=== PATIENT | female | born 1955 | race Caucasian/White ===

== ENCOUNTER → 2016-09-17 | Outpatient (CLI) | payer MEDICARE, OTHER ==
[~2016-09-17] MED LIST: ADVAIR 250-501 EACH INH; CORTISONE ACETAT PO; CORTISONE ACETATE PO; CRESTOR20 MG PO; K-TAB 10MEQ10 MEQ PO; LANTUS (IN100 UNIT/M SUB-Q; LASIX40 MG PO; NORCO 5-325 TA1 EACH PO; OXYGEN M-15 INH; SYNTHROID175 MCG PO; TOPROL XL 5050 MG PO; ZESTRIL40 MG PO
== END | disposition disaster alternative care site (69) ==
LOC: LENT 16:21
DX: D48.5 Neoplasm of uncertain behavior of skin (principal)